=== PATIENT | female | born 1995 | race African-American/Black ===

== ENCOUNTER 2017-04-11 17:29 | Inpatient (IN) ==
[2017-04-11] MEDS ORDERED: MEPERIDINE 50 MG/1 ML VIAL IV PRN (17:34)
[2017-04-11] MEDS ORDERED: BUTORPHANOL 2 MG/ML VIAL IV PRN (17:34)
[2017-04-11] MEDS ORDERED: ONDANSETRON 4 MG/2 ML VIAL IV PRN (17:34)
[2017-04-11] MEDS ORDERED: PROMETHAZINE 25 MG/1 ML VIAL IM ONE ×2 (17:49→22:07)
[2017-04-11] MEDS ORDERED: ePHEDrine 50 MG/ML AMP IV PRN ×2 (17:49→22:07)
[2017-04-11] MEDS ORDERED: LACTATED RINGERS 1,000 ML IV ONE ×2 (17:49→22:07)
[2017-04-11] MEDS ORDERED: FAMOTIDINE 20 MG/2 ML VIAL IV ONE (17:49)
[2017-04-11] MEDS ORDERED: hydrOXYzine HCL 25 MG/1 ML VIAL IM PRN ×2 (17:49→22:07)
[2017-04-11] MEDS ORDERED: CITRIC ACID/SODIUM CITRATE 30 ML UDCUP PO ONE (17:49)
[2017-04-11] MEDS ORDERED: ONDANSETRON 4 MG/2 ML VIAL IV ONE ×2 (17:49→22:07)
[2017-04-11] MEDS ORDERED: diphenhydrAMINE 50 MG/1 ML VIAL IV PRN ×3 (17:49→22:07)
[2017-04-11] MEDS ORDERED: LACTATED RINGERS 1,000 ML IV SCH ×3 (18:00→22:30)
[2017-04-11] MEDS ORDERED: fentaNYL 2 MCG/ROPIV 0.2% EPID 150 ML EPIDURAL SCH ×2 (18:00→22:30)
[2017-04-11] MEDS: LACTATED RINGERS 1,000 ML IV SCH ×2 (18:07→22:41)
[2017-04-11] MEDS: AMPICILLIN INJ 2,000 MG in SODIUM CHLORIDE 0.9% 100 ML IV SCH (18:07)
[2017-04-11 18:15] LABS: Basophils % 0.3 % (0.0-0.8); Eosinophils # 0.1 10*3/uL (0.0-0.87); Eosinophils % 0.8 % (0.00-10.9); Hematocrit 37.6 VOL% (35.7-47.0); Hemoglobin 12.3 GM/DL (12.0-16.0); Immature Granulocytes % 0.5 %; Immature Granulocytes Absolute 0.06 #; Lymphocytes # 2.1 10*3/uL (1.4-4.0); Mean Corpuscular HGB Conc 32.7 GM/DL (32-36); Mean Corpuscular Hemoglobin 30 PG (27-34); Mean Corpuscular Volume 90.6 FL (87-102); Mean Platelet Volume 12.5 FL (9.6-12.0); Monocytes # 1.2 10*3/uL (0.11-0.8); Monocytes % 10.2 % (1.7-12.7); Neutrophils # 8.1 10*3/uL (1.4-7.4); Neutrophils % 70.2 % (38.7-73.9); Platelet Count 103 T/CUMM (130-400); Red Blood Count 4.15 MC/CUMM (3.8-5.5); Red Cell Distribution Width 13.3 % (9.3-17.3); White Blood Count 11.5 T/CUMM (4-12)
[2017-04-11 18:48] LABS: Albumin 3.1 G/DL (3.4-5.0); Bilirubin,Total 0.6 MG/DL (0.2-1.0); Calcium 8.4 MG/DL (8.5-10.1); Osmolality,Calculated 269.7 MOS/KG (273-304); Potassium 3.6 MMOL/L (3.5-5.1)
[2017-04-11 20:55] LABS: HIV Antigen/Antibody Result Nonreactive (Nonreactive); Hepatitis B Surface Ag Quant 0.12 Index; Hepatitis B Surface Ag Result Negative (Negative); Rubella Antibody IgG 71.1 IU/ML
[2017-04-11 21:16] LABS: Rapid Plasma Reagin Confirm NONREACTIVE (Nonreactive)
[2017-04-11] MEDS ORDERED: LACTATED RINGERS 500 ML IV ONE (22:07)
[2017-04-12] MEDS: AMPICILLIN INJ 2,000 MG in SODIUM CHLORIDE 0.9% 100 ML IV SCH ×2 (01:10→06:40)
[2017-04-12] MEDS ORDERED: OXYTOCIN/LR 20 UNIT/1,000 ML BAG IV SCH (02:00)
[2017-04-12] MEDS ORDERED: LIDOCAINE 1% 50 ML VIAL ONE (02:24)
[2017-04-12] MEDS ORDERED: METHYLERGONOVINE 0.2 MG/1 ML AMP ONE (02:25)
[2017-04-12] MEDS ORDERED: miSOPROStol 200 MCG TABLET ONE (02:25)
[2017-04-12] MEDS ORDERED: CARBOPROST TROMETHAMINE 250 MCG/ML AMP IM ONE (02:25)
[2017-04-12] MEDS ORDERED: ACETAMINOPHEN 500 MG TABLET PO ONE (05:00)
[2017-04-12] MEDS ORDERED: BISACODYL 10 MG SUPP RECTAL PRN (12:49)
[2017-04-12] MEDS ORDERED: oxyCODONE/ACETAMINOPHEN 5-325 MG TABLET PO PRN (12:49)
[2017-04-12] MEDS ORDERED: RHO(D) IMMUNE GLOBULIN 300 MCG SYRINGE IM ONE (12:49)
[2017-04-12] MEDS ORDERED: IBUPROFEN 800 MG TABLET PO PRN (12:49)
[2017-04-12] MEDS ORDERED: WITCH HAZEL PADS 100/JAR TOP PRN (12:49)
[2017-04-12] MEDS ORDERED: BENZOCAINE 20%/MENTHOL 0.5% SPRAY 56 GM CAN TOP PRN (12:49)
[2017-04-12] MEDS ORDERED: DIPH/TET/ACEL PERT BOOSTER VACCINE 0.5 ML VIAL IM ONE (12:49)
[2017-04-12] MEDS ORDERED: ACETAMINOPHEN/CODEINE 300-30 MG TABLET PO PRN (12:49)
[2017-04-12] MEDS ORDERED: ACETAMINOPHEN 325 MG TABLET PO PRN (12:49)
[2017-04-12] MEDS ORDERED: LANOLIN 50% CREAM 0.3 OZ TUBE TOP PRN (12:49)
[2017-04-12] MEDS ORDERED: MEASLES/MUMPS/RUBELLA VACCINE 0.5 ML VIAL SUBCUT ONE (12:49)
[2017-04-12] MEDS ORDERED: HYDROCORTISONE 2.5% RECTAL CREAM 30 GM TUBE TOP PRN (12:49)
[2017-04-12] MEDS: oxyCODONE/ACETAMINOPHEN 5-325 MG TABLET PO PRN (13:07)
[2017-04-12] MEDS ORDERED: OXYTOCIN/LR 20 UNIT/1,000 ML BAG IV ONE (13:40)
[2017-04-12] MEDS: DOCUSATE SODIUM 100 MG CAPSULE PO SCH (21:03)
[2017-04-13 05:43] LABS: Basophils # 0.1 10*3/uL (0.0-0.2); Basophils % 0.2 % (0.0-0.8); Eosinophils % 0.2 % (0.00-10.9); Hematocrit 26.8 VOL% (35.7-47.0); Immature Granulocytes % 1.1 %; Immature Granulocytes Absolute 0.29 #; Lymphocytes # 2.6 10*3/uL (1.4-4.0); Lymphocytes % 9.9 % (21.3-54.2); Mean Corpuscular HGB Conc 34.7 GM/DL (32-36); Mean Corpuscular Hemoglobin 30 PG (27-34); Mean Platelet Volume 12.4 FL (9.6-12.0); Monocytes # 2.5 10*3/uL (0.11-0.8); Monocytes % 9.6 % (1.7-12.7); Neutrophils # 20.5 10*3/uL (1.4-7.4); Platelet Count 105 T/CUMM (130-400); Red Cell Distribution Width 13.7 % (9.3-17.3)
[2017-04-13 05:44] LABS: Hemoglobin 9.3 GM/DL (12.0-16.0); Red Blood Count 3.08 MC/CUMM (3.8-5.5); White Blood Count 25.9 T/CUMM (4-12)
[2017-04-13 05:58] LABS: Band Neutrophils 2 % (0-10); Giant Platelets Few; Hypochromasia 1+; Lymphocytes 11 % (20-55); Ovalocytes Slight; Platelet Estimate Decreased; Segmented Neutrophils 83 % (50-85); Total Cells Counted 100
[2017-04-13] MEDS: DOCUSATE SODIUM 100 MG CAPSULE PO SCH ×2 (09:34→21:27)
[2017-04-13] MEDS: FERROUS SULFATE 325 MG TABLET PO SCH (21:27)
[2017-04-13] MEDS: oxyCODONE/ACETAMINOPHEN 5-325 MG TABLET PO PRN (21:33)
[2017-04-14 07:37] VITALS: BP 86/53
[2017-04-14] MEDS: FERROUS SULFATE 325 MG TABLET PO SCH (09:04)
[2017-04-14] MEDS: DOCUSATE SODIUM 100 MG CAPSULE PO SCH (09:04)
[2017-04-14] MEDS ORDERED: INFLUENZA VIRUS VACCINE 0.5 ML SYRINGE IM ONE (10:16)
== END 2017-04-14 13:45 | disposition home or self-care (01) | DRG 560 ==
LOC: N.LDOUT 17:29 → N.LD 17:31 → N.OB 04-12 12:34
PROVIDERS: ADMIT Obstetrics & Gynecology; ATTEND Obstetrics & Gynecology